=== PATIENT | male | born 1980 | race Caucasian/White ===

== ENCOUNTER 2018-12-14 20:27 | Emergency (ER) | payer MEDICAID ==
[~2018-12-14] VITALS: Ht 160 cm; Wt 60.5 kg
[2018-12-14 20:32] VITALS: BP 129/78; PULSE 67; RESP 20; Ht 160 cm; Wt 60.5 kg
[2018-12-14] MEDS ORDERED: IBUP-1542 PO (21:36)
[2018-12-14] MEDS ORDERED: NPH10OT LEFT EAR (21:36)
[2018-12-14] MEDS ORDERED: AMOX500C2 PO (21:36)
--- NOTE | 2018-12-14 21:40 | ERD ---
ER Documentation Chief Complaint Chief Complaint pain on L ear x 1 week HPI 38-year-old male presents with pain in the left ear for the last week. He denies cough, congestion, bleeding or discharge. Denies fever. ROS All systems reviewed and are negative except as per history of present illness. Medications Home Meds Active Scripts Neomycin/Polymyxin/Hydrocort* (Cortisporin* Otic) 10 Ml Susp, 4 DROP LEFT EAR QID for 7 Days, EA Prov:MELISA LUCIA MD 12/14/18 Ibuprofen* (Motrin*) 600 Mg Tab, 600 MG PO Q6, #15 TAB Prov:MELISA LUCIA MD 12/14/18 Amoxicillin* (Amoxicillin*) 500 Mg Cap, 500 MG PO TID for 10 Days, CAP Prov:MELISA LUCIA MD 12/14/18 PMhx/Soc Medical and Surgical Hx: pt denies Medical Hx, pt denies Surgical Hx Hx Alcohol Use: No Hx Substance Use: No Hx Tobacco Use: No FmHx Family History: No diabetes, No coronary disease, No other Physical Exam Vitals Vital Signs Date Temp Pulse Resp B/P (MAP) Pulse Ox O2 O2 Flow FiO2 Time Delivery Rate 12/14/18 98.1 67 20 129/78 99 20:32 (95) Physical Exam Const: No acute distress Head: Atraumatic Eyes: Normal Conjunctiva ENT: Normal External Ears, Nose and Mouth. TMs with yellow fluid and opaque bilaterally. Mild pain with passive range of motion. Irritation of left external auditory canal. No mastoid tenderness or facial erythema. Neck: Full range of motion. No meningismus. Resp: Clear to auscultation bilaterally Cardio: Regular rate and rhythm, no murmurs Abd: Soft, non tender, non distended. Normal bowel sounds Skin: No petechiae or rashes Back: No midline or flank tenderness Ext: No cyanosis, or edema Neur: Awake and alert Psych: Normal Mood and Affect Procedures/MDM Patient presents with left ear pain for last week. He is signs possibly of serous otitis media or acute otitis media. Also has signs of mild otitis externa. We will treat empirically with amoxicillin, Cortisporin, ibuprofen, primary care follow-up and return precautions. He has no signs of facial cellulitis, mastoiditis, additional concerning signs or symptoms. The patient was stable with no new complaints during the ER course. Clinically, there is no current evidence to suggest meningitis, sepsis, acute abdomen, pneumonia, stroke, acute coronary syndrome, pulmonary embolism, aortic dissection or any other emergent condition appearing to require further evaluation or hospitalization. Patient counseled regarding my diagnostic impression and care plan. Prior to discharge all questions answered. Pt agrees with treatment plan and understands strict return precautions. Pt is instructed to follow up with primary care provider within 24-48 hours. Precautionary instructions provided including instructions to return to the ER if not improving or for any worsening or changing symptoms or concerns. Disclaimer: Inadvertent spelling and grammatical errors are likely due to EHR/dictation software use and do not reflect on the overall quality of patient care. Also, please note that the electronic time recorded on this note does not necessarily reflect the actual time of the patient encounter. Departure Diagnosis: Primary Impression: Left ear pain Condition: Stable Patient Instructions: Otitis Media, Abx Tx (Adult), External Ear Infection (Adult) Additional Instructions: Cheque otro vez con cox doctor primario en el proximo singh or regresa para mas o nueva simptomas. MELISA LUCIA MD December 14, 2018 21:40
== END 2018-12-14 22:42 | disposition home or self-care (01) ==
LOC: FTE 20:27
DX: H92.02 Otalgia, left ear (principal)
CPT/HCPCS: 99283